=== PATIENT | male | born 1985 | race Caucasian/White ===

== ENCOUNTER 2017-11-10 19:14 | Emergency (ER) | payer BC ==
[~2017-11-10 19:14] MED LIST: AC500T PO; CTRZ10T PO; NAPR550T PO; PRM25T PO; SULF1TAB23 PO
--- OUTSIDE RECORDS SUMMARY | 2017-11-11 03:19 | XMS REPORT | Continuity of Care Document ---
Author Author [facility] Address Unknown Phone Unavailable Allergies There is no data. Medications There is no data. Problems Date Dx Coded Attending Type Code Diagnosis Diagnosed By 03/10/2014 ALLYN SOSA DO V05.3 HEP B (ADULT) DX Procedures There is no data. Results There is no data. Encounters ACCT No. Visit Date/Time Discharge Status Pt. Type Provider Facility Loc./Unit Complaint [id number] 03/10/2014 14:35:00 03/10/2014 23:59:59 CLS Outpatient ALLYN SOSA DO [id number] 07/17/2012 16:06:00 07/17/2012 19:19:00 DIS Emergency
--- OUTSIDE RECORDS SUMMARY | 2017-11-11 03:19 | XMS REPORT | Continuity of Care Document ---
Author Author [facility] Organization [facility] Address Unknown Phone Unavailable Care Team Providers Care Epic Prelude Analyst Name Role Phone NO, LOCAL PHYSICIAN PP Unavailable Insurance Providers Payer Name Policy Number Subscriber Name Relationship [facility] [id number] Issa Gomez 01 Self / Same As Patient Advance Directives Directive Response Recorded Date Advance Directives N 07/17/12 4:10pm Problems No Known Problems or Medical conditions. Social History History Response Recorded Date/Time Alcohol Use Denies Use 07/17/12 4:10pm Recreational Drug Use N 07/17/12 4:10pm Allergies, Adverse Reactions, Alerts Allergen Type Severity Reaction Last Updated Levofloxacin Allergy Mild 09/17/10 Medications Medication Dose Units Route Sig Qty Days Naproxen Sodium (Anaprox Ds) 550 Mg PO BID 10 Promethazine HCl (Phenergan 25 Mg) 1 Tab PO QID PRN 10 Acetaminophen (Tylenol) 1000 Mg PO Q4H PRN Sulfamethoxazole/Trimethoprim (Bactrim 400-80 Mg Tablet) 1 Tab PO BID Cetirizine HCl (Zyrtec) 1 Each PO DAILY Response Recorded Date/Time Status not known Unknown Results No Known Relevant Diagnostic Tests, Laboratory Data and/or Discharge Summary. Encounters Encounter Location Date/Time Departed Emergency [facility] 01/19 4:06pm
== END 2017-11-10 19:17 | disposition left against medical advice (07) ==
LOC: EDUNIT# 19:14 → ER 19:16
DX: Z04.3 Encounter for examination and observation following other accident (principal); X58.XXXA Exposure to other specified factors, initial encounter

== ENCOUNTER → 2019-03-23 | Outpatient (CLI) | payer BC, OTHER ==
--- NOTE | 2019-03-23 20:20 | Diagnostic Imaging Report ---
EXAMINATION: Magnetic resonance imaging of the left knee without intravenous contrast DATE: March 23, 2019. COMPARISON: None. INDICATION: 33-year-old male, left knee pain. TECHNIQUE: Multiplanar, multisequence non contrast enhanced MR imaging was accomplished. FINDINGS: MENISCI: The medial meniscus is intact. The lateral meniscus is intact. LIGAMENTS AND TENDONS: The anterior and posterior cruciate ligaments are intact. The medial collateral ligament is intact. The iliotibial band, mid third lateral capsular ligament, fibular collateral ligament, biceps femoris tendon and conjoined tendon are intact. The quadriceps tendon and patella ligament are intact. JOINT: The articular cartilage surfaces are intact. There is no knee joint effusion, prominent synovitis, or intra-articular body. BONE: There is unremarkable bone marrow signal. Specifically, negative for fracture, osteomyelitis, osteonecrosis, or marrow replacing process. BURSAE AND SOFT TISSUES: There is a partially ruptured small slitlike Robert's cyst. There is nonspecific fairly broad anterior subcutaneous edema. There is no identified focal fluid collection. IMPRESSION: 1. Intact menisci and cruciate ligaments. Additional ligaments and tendons are intact. 2. No acute fracture or bone contusion. 3. Grossly intact articular cartilage. No large knee joint effusion. 4. Partially ruptured small slitlike Robert's cyst. 5. Nonspecific predominantly anterior subcutaneous edema. Dictated by: Dictated on workstation # [id number]
== END ==
LOC: RAD 14:21
PROVIDERS: ATTEND Nurse Practitioner
DX: M66.0 Rupture of popliteal cyst (principal); M22.42 Chondromalacia patellae, left knee
CPT/HCPCS: 73721

== ENCOUNTER 2022-07-05 23:26 | Emergency (ER) | payer OTHER ==
[~2022-07-05] VITALS: Ht 178 cm; Wt 140.0 kg
[2022-07-05 23:37] VITALS: BP 145/109
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
[2022-07-06] MEDS ORDERED: NAPROXEN 250 MG (NAPROSYN) TABLET PO ONE
[2022-07-06] MEDS ORDERED: TETANUS,DIPTH,PERTUSS P/F (BOOSTRIX) 0.5 ML VIAL IM ONE
--- NOTE | 2022-07-06 07:00 | Diagnostic Imaging Report ---
EXAMINATION: Right shoulder radiograph EXAM DATE: 07/06/2022 12:08 AM COMPARISON: None available. HISTORY: Right shoulder pain TECHNIQUE: 3 views FINDINGS: There is no acute fracture, dislocation, or destructive osseous process. The joint spaces are normal. The soft tissues are normal. IMPRESSION: 1. No acute osseous abnormality. Dictated by: Dictated on workstation # [id number]
== END 2022-07-06 00:23 | disposition home or self-care (01) ==
LOC: EDUNIT# 23:26 → ER 23:31
DX: S46.911A Strain of unspecified muscle, fascia and tendon at shoulder and upper arm level, right arm, initial encounter (principal); S50.311A Abrasion of right elbow, initial encounter; Z23 Encounter for immunization; Y04.0XXA Assault by unarmed brawl or fight, initial encounter; Y92.59 Other trade areas as the place of occurrence of the external cause; Y99.0 Civilian activity done for income or pay
CPT/HCPCS: 73030; 90715

== ENCOUNTER → 2022-07-23 | Outpatient (CLI) | payer OTHER ==
[~2022-07-23] MED LIST changes: +LIDOCAINE 1% INJ 10 ML VIAL INJ ONE; +LIDOCAINE 1% INJ 10 ML VIAL ONE
--- NOTE | 2022-07-23 12:59 | Diagnostic Imaging Report ---
EXAMINATION: Magnetic resonance imaging of the right shoulder with intra-articular contrast. DATE: July 23, 2022. COMPARISON: Right shoulder arthrogram July 23, 2022. Right shoulder radiographs July 06, 2022. HISTORY: 37-year-old male, right shoulder pain. TECHNIQUE: Magnetic Resonance Imaging sequences were performed of the shoulder following the intra-articular administration of contrast. FINDINGS: ROTATOR CUFF, LIGAMENTS, TENDONS, AND MUSCLES: The supraspinatus, infraspinatus, teres minor, and subscapularis tendons and muscles are intact. There is normal rotator cuff muscle bulk and signal. LONG HEAD OF BICEPS: The biceps labral attachment and long head of the biceps tendon are intact. The long head of the biceps tendon is normally positioned within the bicipital groove. GLENOHUMERAL JOINT: There is a superior labral tear extending posteriorly from the biceps labral attachment to involve the entire length of the posterior labrum. The tear extends to approximately the 5 o'clock position of the inferior labrum. There is notable displacement of the torn posterior labrum. The articular cartilage is grossly intact. There is no identified intra-articular body or prominent synovitis. There is no identified articular cartilage defect. ACROMIOCLAVICULAR JOINT: The acromioclavicular joint is normally aligned. The coracoclavicular and coracoacromial ligaments are intact. There are mild acromioclavicular degenerative changes without large undersurface osteophyte. BONE: There is no os acromiale. There is no Hill-Sachs deformity. There is edema-like signal in the anterosuperior aspect of the humeral head, compatible with bone contusion, without clearly identified altered bone morphology at this location. The additional bone marrow signal is unremarkable. BURSAE AND SOFT TISSUES: The bursae and soft tissue surrounding the shoulder are unremarkable. IMPRESSION: 1. There is a tear extending from the biceps labral attachment at the 12 o'clock position involving the entire length of the posterior labrum to the 5 o'clock position of the inferior labrum with displacement of the torn posterior labrum. 2. No identified articular cartilage defect. 3. Intact rotator cuff and proximal long head of the biceps tendon. 4. Mild acromio clavicular degenerative changes without large undersurface osteophyte. 5. Bone contusion of the anterior superior aspect of the humeral head which can be seen with a recent posterior dislocation. There is no clearly identified contour abnormality to specifically state this as a reverse Hill-Sachs defect. Dictated by: Dictated on workstation # [id number]
--- NOTE | 2022-07-23 16:49 | Diagnostic Imaging Report ---
INDICATION: Right shoulder pain. After explaining the planned procedure and associated risks to the patient, informed consent was obtained. Maximal sterile barrier and fluoroscopic guidance were utilized for needle placement into the right shoulder space. Dilute gadolinium contrast was injected, and one digital image was obtained and sent to the PACS system. Fluoroscopy time was 15 seconds. Patient tolerated the procedure well and was taken to the MRI scanner. IMPRESSION: Successful fluoroscopically guided right shoulder arthrogram prior to MR arthrography. Dictated by: Dictated on workstation # [id number]
== END ==
LOC: RAD 12:00
PROVIDERS: ATTEND Nurse Practitioner
DX: M19.011 Primary osteoarthritis, right shoulder (principal); S43.431A Superior glenoid labrum lesion of right shoulder, initial encounter
CPT/HCPCS: 23350; 73040; 73222